=== PATIENT | male | born 1955 | race Caucasian/White ===

== ENCOUNTER 2025-01-01 15:20 | Outpatient (CLI) | payer MEDICARE, SELFPAY ==
--- OUTSIDE RECORDS SUMMARY | 2025-01-01 15:00 | XMS_ITS | Encounter Summary ---
Author Organization [facility] [employer] [facility] Address [address] [place] [address] Care Team Providers Care Sales Promotion Director Name Role Phone Fred Ramsay MD Primary Care Provider +1- [phone] Reason for Referral * Radiology Services (Routine) - Open Specialty Diagnoses / Procedures Referred By Blas chavez Referred To Contact Diagnoses MGUS (monoclonal gammopathy of unknown significance) Procedures XR BONE SURVEY COMPLETE Javier Wang MD [address] [employer] [address] [place] [address] Phone: tel: fax: Referral ID Status Reason Start Date Expiration Date Visits Re quested Visits Authorized [id number] Open 01/01/2025 02/01/2026 1 1 TAL COMPUTER OPERATOR Encounter Details Date Type Department Care Team (Late st Contact Info) Description 01/01/2025 3:00 PM DIGITAL COMPUTER OPERATOR Office Visit [facility] Oncology and Hematology - Jaspal [facility] Pratik Christianson [facility] [address] [place] [address] Javier Wang MD [address] [employer] [address] [place] [address] MGUS (monoclonal gammopathy of unknown significance) (Primary Dx) Social History Tobacco Use Types Packs/Day Years Used Date Smoking Tobacco: Never Smokeless Tobacco: Never Alcohol Use Standard Drinks/Week Comments Not Currently 0 (1 standard drink = 0.6 oz pur e alcohol) occasionally Feeling Safe Answer Date Recorded Are you in a relationship wi th someone who hurts you emotionally and/or physically? No 12/26/2024 Food Insecurity Answer Date Recorded Patient needs follow up regardin 07/02/2024 Transportation Needs Answer Date Record ed Patient needs follow up regardin 07/02/2024 Housing Stability Answer Date Recorded Social/Environmental Concerns No concerns Utility Needs Answer Date Recorded Patient needs follow up regardin 07/02/2024 Sex and Gender Information Value Date Recorded Sex Assigned at Not on file Legal Sex Male 3:56 PM CDT Gender Identity Not on file Sexual Orientation Not on file documented as of this encounter Last Filed Vital Signs Vital Sign Reading Time Taken Comments Blood Pressure 128/57 01/01/2025 2:33 PM DIGITAL COMPUTER OPERATOR Pulse 65 01/01/2025 2:33 PM DIGITAL COMPUTER OPERATOR Temperature 36.1 C (96.9 F) 01/01/2025 2:33 PM DIGITAL COMPUTER OPERATOR Respiratory Rate 15 01/01/2025 2:33 PM DIGITAL COMPUTER OPERATOR Oxygen Saturation 96% 01/01/2025 2:33 PM DIGITAL COMPUTER OPERATOR Inhaled Oxygen Concentration - - Weight 97.6 kg (215 lb 3.2 oz) 01/01/2025 2:33 P M DIGITAL COMPUTER OPERATOR Height 182.9 cm (6') 01/01/2025 2:33 PM DIGITAL COMPUTER OPERATOR Body Mass Index 29.19 01/01/2025 2:33 PM DIGITAL COMPUTER OPERATOR documented in this encounter Plan of Treatment Upcoming Encounters Date Type Department Care Team (Latest Contact Info) Description 01/11/20 11:30 AM DIGITAL COMPUTER OPERATOR Appointment [facility] Imaging Services [facility] [address] [place] [address] [place] [address] [facility] [address] [place] [address] 01/17/20 4:30 PM DIGITAL COMPUTER OPERATOR Telephone Check Up [facility] Oncology and Hematology - Jaspal [address] [place] [address] Javier Wang MD [address] [facility] [address] [place] [address] 01/31/20 9:00 AM DIGITAL COMPUTER OPERATOR Hospital Encounter [facility] [address] [place] [address] [place] [address] [place] [address] Esophageal varices without bleeding, unspecified esophageal varices type ([facility]/HCC) 01/31/20 25 9:00 AM DIGITAL COMPUTER OPERATOR - 01/31/20 25 9:30 AM DIGITAL COMPUTER OPERATOR Surgery [facility] [address] [place] [address] [place] [address] [place] [address] ESOPHAGOGASTRODUODENOSCOPY 03/07/19 26 10:00 AM DIGITAL COMPUTER OPERATOR Office Visit [facility] Nephrology [place] [address] [facility] [address] [place] [address] Adelita Camacho MD [address] [facility] [address] [place] [address] 03/20/19 26 1:00 PM DIGITAL COMPUTER OPERATOR Office Visit [facility] Heart and Vascular Electrophysiology - [address] [facility] [address] [facility] [address] [place] [address] 04/03/19 26 8:15 AM DIGITAL COMPUTER OPERATOR Appointment [facility] Imaging Services [facility] [address] [place] [address] [place] [address] [place] [address] 04/03/19 26 2:30 PM DIGITAL COMPUTER OPERATOR Office Visit [facility] GASTROENTEROLOGY - [address] [facility] [address] [facility] [facility] [facility] [facility] [place] [address] [place] [address] [place] [address] 04/16/19 1:45 PM DIGITAL COMPUTER OPERATOR Office Visit [facility] Heart and Vascular - [address] [facility] [address] [address] [facility] [address] [place] [address] [place] [address] [facility] [address] [place] [address] Scheduled Orders Name Type Priority Associated Diagnoses Orde r Schedule CBC WITH DIFFERENTIAL Lab Stat MGUS (monoclonal gammopathy of unknown significance) Expected: 01/01/2025, Expires: 01/01/2026 COMPREHENSIVE METABOLIC PANEL Lab Stat MGUS (monoclonal gammopathy of unknown significance) Expected: 01/01/2025, Expires: 01/01/2026 IMMUNOGLOBULINS IGG IGA IGM Lab Routine MGUS (monoclonal gammopathy of unknown significance) Expected: 01/01/2025, Expires: 01/01/2026 KAPPA/LAMBDA, FREE LIGHT CHAINS Lab Routine MGUS (monoclonal gammopathy of unknown significance) Expected: 01/01/2025, Expires: 01/01/2026 PROTEIN ELECTROPHORESIS W/REFLEX,SERUM Lab Routine MGUS (monoclonal gammopathy of unknown significance) Expected: 01/01/2025, Expires: 01/01/2026 XR BONE SURVEY COMPLETE Imaging Routine MGUS (monoclonal gammopathy of unknown significance) 1 Occurrences starting 01/01/2025 until 01/01/2026 Scheduled Procedures Name Priority Associated Diagnoses Date/Ti oh ESOPHAGOGASTRODUODENOSCOPY Esophageal varices without bleeding, unspecified esophageal varices type (CMS/HCC) 01/30/2025 9:00 AM DIGITAL COMPUTER OPERATOR documented as of this encounter Goals Goal Patient Goal Type Associated Problems Recent Progress Patient-Stated? Author Autogenera claudia Goal Care Plan Autogenerated Problem No Rain Farfan documented as of this encounter Visit Diagnoses Diagnosis MGUS (monoclonal gammopathy of unknown significance)- Primary Monoclonal paraproteinemia Esophageal varices without bleeding, unspecified esophageal varices type (CMS/HCC) documented in this encounter Additional Health Concerns Active Problems Noted Date Diagnosed Date Autogenerated Problem 12/28/2024 documented as of this encounter Care Teams Sales Promotion Director Relationship Specialty Start Date End Date Fred Ramsay MD [address] [place] [address] PCP - General Family Practice 12/10/23 documented as of this encounter
--- OUTSIDE RECORDS SUMMARY | 2025-01-01 15:34 | XMS_ITS | Clinical Summary ---
Author Organization [facility] Address [address] [place] [address] Care Team Providers Care Secretary Office Clerk Name Role Phone Fred Ramsay MD Primary Care Provider [phone] [phone] Allergies No known active allergies Medications aspirin 81 mg enteric coated tablet Take 1 tablet (81 mg total) by mouth daily Active allopurinoL (ZYLOPRIM) 100 mg tablet Take 1 tablet (100 mg total) by mouth daily 3 Active atorvastatin (LIPITOR) 10 mg tablet Take 1 tablet (10 mg total) by mouth daily 5 Active ergocalciferol (VITAMIN D) 50,000 unit capsule Take 1.25 mg by mouth once a week 3 Active glipiZIDE XL (GLUCOTROL XL) 2.5 mg 24 hr tablet Take 1 tablet (2.5 mg total) by mouth every other day 6 Active levothyroxine (SYNTHROID) 75 mcg tablet Take 1 tablet (75 mcg total) by mouth daily 6 Active losartan-hydroCHL OROthiazide (HYZAAR) 100-12.5 mg per tablet Take 1 tablet by mouth daily 5 Active sildenafiL (VIAGRA) 50 mg tablet Take 1 tablet (50 mg total) by mouth as needed 3 Active cyclobenzaprine (FLEXERIL) 10 mg tablet Take 1 tablet (10 mg total) by mouth daily as needed for muscle spasms (at bedtime) 30 tablet 1 4 Active Additional Information Patient not taking.Reported on 10/20/2023 calcium carb-mag oxide-vit D3 400-167-133 mg-mg-unit tablet Take by mouth daily Active coenzyme Q10 10 mg capsule Take 1 capsule (10 mg total) by mouth daily Active pregabalin (LYRICA) 50 mg capsuleIndication s:Myalgia,Lumbar radiculopathy Take 1 capsule (50 mg total) by mouth 2 (two) times a day 60 capsule 2 4 Active Active Problems Problem Noted Date Diagnosed Date History of nonmelanoma skin cancer 04/08/2016 Condyloma acuminatum 03/06/2016 Surgical History Surgery Date Site/Laterality Comments BACK SURGERY CARDIAC PACEMAKER PLACEMENT 02/23/2008 - 02/21/2009 Medical History Medical History Date Comments 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 - (Added by TW Conv) Hypertension Family History Medical History Relation Name Comments Cancer Brother Heart disease Brother Relation Name Status Comments Brother Social History Tobacco Use Types Packs/Day Years Used Date Smoking Tobacco: Never Sex and Gender Information Value Date Recorded Sex Assigned at Not on file Legal Sex Male 2:01 AM MINIATURE SET CONSTRUCTOR Gender Identity Not on file Sexual Orientation Not on file Last Filed Vital Signs Vital Sign Reading Time Taken Comments Blood Pressure - - Pulse - - Temperature - - Respiratory Rate - - Oxygen Saturation - - Inhaled Oxygen Concentration - - Weight 101.8 kg (224 lb 6.4 oz) 024 10:27 AM CDT Height 181.6 cm (5' 11.5) 10/20/2023 1 0:27 AM CDT Body Mass Index 30.86 10/20/2023 10:27 AM CDT Plan of Treatment Health Maintenance Due Date Last Done Comments Colon Cancer Screening-Colonoscopy 1955 Depression Screening 1955 Fall Risk Assessment 1955 Hepatitis C Screening 1955 Hepatitis B Screening 1972 Zoster Vaccine (1 of 2) 2004 Well Visit 65+ 10/18/2019 DTaP/Tdap/Td Vaccine (2 - Td or Tdap) 01/12/2022 01/13/2012 Covid-19 Vaccine (6 - 2024-2 6 season) 2024 01/28/2023, 12/31/2021, 02/05/2021, Additional history exists Influenza Vaccine (#1) 2024 3, 12/31/2021, 02/03/2021, Additional history exists Pneumococcal vaccine 65+ Completed 12/07/2019, 02/2019 Insurance AETNA MEDICARE AETNA MEDICARE Care Teams Secretary Office Clerk Relationship Specialty Start Date End Date Fred Ramsay MD [address] [facility] [place] [address] PCP - General Emergency Medicine 09/02/23
--- OUTSIDE RECORDS SUMMARY | 2025-01-01 15:34 | XMS_ITS | Encounter Summary ---
Author Organization [facility] Address [address] [place] [address] Care Team Providers Care Cabinetmaker Apprentice Name Role Phone Fred Ramsay MD Primary Care Provider +1- [phone] Encounter Details Date Type Department Care Team (Latest Contact Info) Description 12/14/2024 Results Follow-Up [facility] Heart and Vascular Electrophysiology - [address] [facility] 300 [address] [facility] 300 [place] [address] [place] [address] [facility] 300 [place] [address] PACER ANALYSIS REMOTE, UP TO 90 DAYS Social History Tobacco Use Types Packs/Day Years Used Date Smoking Tobacco: Never Smokeless Tobacco: Never Alcohol Use Standard Drinks/Week Comments Not Currently 0 (1 standard drink = 0.6 oz pur e alcohol) occasionally Feeling Safe Answer Date Recorded Are you in a relationship wi th someone who hurts you emotionally and/or physically? No 02/29/2024 Food Insecurity Answer Date Recorded Patient needs [...] on file documented as of this encounter Miscellaneous Notes * Result Encounter Note - Jf Loco MD - 12/14/2024 2:01 PM CDT Reviewed and agree with documentation. documented in this encounter Plan of Treatment Upcoming Encounters Date Type Department Care Team (Latest Contact Info) Description 01/11/20 11:30 AM BEVEL FACE STONER AND POLISHER Appointment [facility] Imaging Services [facility] [address] [place] [address] [place] [address] [employer] [address] [place] [address] 01/17/20 4:30 PM BEVEL FACE STONER AND POLISHER Telephone Check Up [facility] Oncology and Hematology - Jaspal [address] [facility] 200 [place] [address] Javier Wang MD [address] [facility] [address] [place] [address] 01/31/20 9:00 AM BEVEL FACE STONER AND POLISHER Hospital Encounter [facility] Endoscopy Services [address] [place] [address] [place] [address] [facility] [address] [place] [address] Esophageal varices without bleeding, unspecified esophageal varices type (CMS/HCC) 01/31/20 9:00 AM BEVEL FACE STONER AND POLISHER - 01/31/20 9:30 AM BEVEL FACE STONER AND POLISHER Surgery [facility] Endoscopy Services [address] [place] [address] [place] [address] [facility] [address] [place] [address] ESOPHAGOGASTRODUODENOSCOPY 03/07/19 26 10:00 AM BEVEL FACE STONER AND POLISHER Office Visit [facility] Nephrology [employer] [address] [facility] [address] [place] [address] Adelita Camacho MD [address] [facility] [address] [place] [address] 03/20/19 1:00 PM BEVEL FACE STONER AND POLISHER Office Visit [facility] Heart and Vascular Electrophysiology - [address] [facility] 300 [address] [facility] 300 [place] [address] 04/03/19 8:15 AM BEVEL FACE STONER AND POLISHER Appointment [facility] Imaging Services [facility] [address] [place] [address] [place] [address] [facility] 102 [place] [address] 04/03/19 2:30 PM BEVEL FACE STONER AND POLISHER Office Visit [facility] GASTROENTEROLOGY - [address] [facility] 102 [address] [facility] 102 [place] [address] [place] [address] [facility] 102 [place] [address] 04/16/19 1:45 PM BEVEL FACE STONER AND POLISHER Office Visit [facility] Heart and Vascular - [address] [facility] 300 [address] [facility] 300 [place] [address] [place] [address] [facility] 300 [place] [address] Scheduled Procedures Name Priority Associated Diagnoses Date/Ti ar ESOPHAGOGASTRODUODENOSCOPY Esophageal varices without bleeding, unspecified esophageal varices type (CMS/HCC) 01/30/2025 9:00 AM BEVEL FACE STONER AND POLISHER documented as of this encounter Visit Diagnoses Not on filedocumented in this encounter Care Teams Cabinetmaker Apprentice Relationship Specialty Start Date End Date Fred Ramsay MD [address] [place] [address] PCP - General Family Practice 12/10/23 documented as of this encounter
--- OUTSIDE RECORDS SUMMARY | 2025-01-01 15:34 | XMS_ITS | Clinical Summary ---
Author Organization [facility] Address [address] [facility] 2 [place] [address] Phone Care Team Providers Care Hot Wire Glass Tube Cutter Name Role Phone Unavailable Primary Care Provider Unavailabl e Allergies No known active allergies Medications atorvastatin (LIPITOR) 10 MG Tablet Take 1 Tab by mouth daily. 10/03/2014 Active losartan-hydroc hlorothiazide (HYZAAR) 100-12.5 MG Tablet Take 1 Tab by mouth daily. 10/03/2014 Active gabapentin (NEURONTIN) 300 MG Capsule 1 Cap at bedtime for 3 days. Then 1 Cap two times a day for 3 days. Then 1 cap three times a day for 3 Days. Then call office with report 18 Cap 0 12/06/2014 Active Active Problems Problem Noted Date Diagnosed Date Weakness of left foot 12/06/2014 Spinal stenosis of lumbar region 12/06/2014 Abnormal EKG Atrioventricular block, first degree Sinus bradycardia Leg pain, left Spondylolisthesis, acquired Lumbar herniated disc Family History Medical History Relation Name Comments Heart Attack Brother 1 Cancer Brother 2 Dx with throat cancer Diabetes Father Cancer Mother Dx with colon c ancer ? Relation Name Status Comments Brother 1 Brother 2 Father from ulcer complications Mother after colo n cancer- post-surgery ? Social History Tobacco Use Types Packs/Day Years Used Date Smoking Tobacco: Never Smokeless Tobacco: Never Alcohol Use Standard Drinks/Week Comments Yes 0 (1 standard drink = 0.6 oz pur e alcohol) drinks occasioannly Sex and Gender Information Value Date Recorded Sex Assigned at Not on file Legal Sex Male 7:41 PM CDT Gender Identity Not on file Sexual Orientation Not on file Occupation Industry Job Start Date Job End Date retired Not on file Not on file Not on file Last Filed Vital Signs Vital Sign Reading Time Taken Comments Blood Pressure 122/70 12/19/2014 11:11 AM CDT Pulse 88 12/06/2014 9:09 AM CDT Temperature - - Respiratory Rate - - Oxygen Saturation - - Inhaled Oxygen Concentration - - Weight 101.6 kg (224 lb) 12/19/2014 11:11 AM CDT Height 185.4 cm (6' 1) 12/19/2014 11:11 AM CDT Body Mass Index 29.55 12/19/2014 11:11 AM CDT Plan of Treatment Health Maintenance Due Date Last Done Comments Hepatitis C Virus (HCV) Screening 1955 Cologuard 10/18/1999 Colonoscopy 10/18/1999 Colorectal Cancer Screening 10/18/1999 Immunochemical Fecal Occult Blood 10/18/1999 Zoster Immunization (1 of 2) 2004 Influenza Immunization (#1) 2024 12/0 08/2022, 12/31/2021, 02/03/2021, Additional history exists SARS-COV-2 Immunization ( season) 2024 01/28/2023, 12/31/2021, 02/05/2021, Additional history exists Respiratory Syncytial Virus (RSV) Immunization (Adult) (1 - 1-dose 75+ series) 2029 DTaP/Tdap/Td Immunization Discontinued 01/13/2012 TdaP Immunization Completed 01/13/2012 Pneumococcal Immunization (50+ years) Completed 12/07/2019, 11/23/2019 Pneumococcal Immunization Combined Discontinued 12/07/2019, 11/23/2019 Hepatitis B Immunization Aged Out No longer eligible based on patient's age to complete this topic Human Papillomavirus (HPV) Immunization Aged Out No longer eligible based on patient's age to complete this topic Meningococcal Immunization (ACWY) Aged Out No longer eligible based on patient's age to complete this topic Rotavirus Immunization Aged Out No lo nger eligible based on patient's age to complete this topic Insurance [facility] OA
--- OUTSIDE RECORDS SUMMARY | 2025-01-01 15:34 | XMS_ITS | Encounter Summary ---
Author Organization [facility] Address [address] [place] [address] Care Team Providers Care Dry Starch Supervisor Name Role Phone Fred Ramsay MD Primary Care Provider +1- [phone] Reason for Visit * Reason Onset Date Comments Mary 12/10/2023 Spoke Gayla/ Jasmin @ Dr. Hatch's exchange Encounter Details Date Type Department Care Team (Late st Contact Info) Description 12/10/2023 Telephone [facility] Admitting [address] [place] [address] [place] [address] [address] Mary (Spoke Gayla/ Jasmin @ Dr. Hatch's exchange) Social History Tobacco Use Types Packs/Day Years Used Date Smoking Tobacco: Never Smokeless Tobacco: Never Alcohol Use Standard Drinks/Week Comments Not Asked 0 (1 standard drink = 0.6 oz pur e alcohol) occasionally Feeling Safe Answer Date Recorded Are you in a relationship wi th someone who hurts you emotionally and/or physically? No 12/10/2023 Food Insecurity Answer Date Recorded Social/Environmental Concerns No concerns Transportation Needs Answer Date Record ed Social/Environmental Concerns No concerns Housing Stability Answer Date Recorded Social/Environmental Concerns No concerns Utility Needs Answer Date Recorded Social/Environmental Concerns No concerns Sex and Gender Information Value Date Recorded Sex Assigned at Not on file Legal Sex Male 3:56 PM CDT Gender Identity Not on file Sexual Orientation Not on file documented as of this encounter Plan of Treatment Upcoming Encounters Date Type Department Care Team (Latest Contact Info) Description 01/11/20 11:30 AM OPTICAL LENS MANUFACTURING TECH Appointment [facility] Imaging Services [facility] [address] [place] [address] [place] [address] [facility] [address] [place] [address] 01/17/20 4:30 PM OPTICAL LENS MANUFACTURING TECH Telephone Check Up [facility] Oncology and Hematology - Jaspal [address] [facility] [address] [place] [address] Javier Wang MD [address] [facility] [address] [place] [address] 01/31/20 9:00 AM OPTICAL LENS MANUFACTURING TECH Hospital Encounter [facility] Endoscopy Services [address] [place] [address] [place] [address] [facility] [address] [place] [address] Esophageal varices without bleeding, unspecified esophageal varices type (CMS/HCC) 01/31/20 9:00 AM OPTICAL LENS MANUFACTURING TECH - 01/31/20 9:30 AM OPTICAL LENS MANUFACTURING TECH Surgery [facility] Endoscopy Services [address] [place] [address] [place] [address] [facility] [address] [place] [address] ESOPHAGOGASTRODUODENOSCOPY 03/07/19 10:00 AM OPTICAL LENS MANUFACTURING TECH Office Visit [facility] Nephrology [place] [address] [facility] [address] [place] [address] Adelita Camacho MD [address] [facility] [address] [place] [address] 03/20/19 1:00 PM OPTICAL LENS MANUFACTURING TECH Office Visit [facility] Heart and Vascular Electrophysiology - [address] [facility] 300 [address] [facility] [address] [place] [address] 04/03/19 8:15 AM OPTICAL LENS MANUFACTURING TECH Appointment [facility] Imaging Services [facility] [address] [place] [address] [place] [address] [facility] [address] [place] [address] 04/03/19 2:30 PM OPTICAL LENS MANUFACTURING TECH Office Visit [facility] GASTROENTEROLOGY - [address] [facility] 102 [address] [facility] [address] [place] [address] [place] [address] [facility] [address] [place] [address] 04/16/19 1:45 PM OPTICAL LENS MANUFACTURING TECH Office Visit [facility] Heart and Vascular - [address] [facility] 300 [address] [facility] 300 [place] [address] [place] [address] [address] Scheduled Procedures Name Priority Associated Diagnoses Date/Ti nv ESOPHAGOGASTRODUODENOSCOPY Esophageal varices without bleeding, unspecified esophageal varices type ([facility]) 01/30/2025 9:00 AM OPTICAL LENS MANUFACTURING TECH documented as of this encounter Visit Diagnoses Not on filedocumented in this encounter Care Teams Dry Starch Supervisor Relationship Specialty Start Date End Date Fred Ramsay MD [address] [place] [address] PCP - General Family Practice 12/10/23 documented as of this encounter
--- OUTSIDE RECORDS SUMMARY | 2025-01-01 15:34 | XMS_ITS | Encounter Summary ---
Author Organization [facility] Address [address] [place] [address] Care Team Providers Care Technical Support 1 Software Engineer Name Role Phone Fred Ramsay MD Primary Care Provider [phone]- [phone] Encounter Details Date Type Department Care Team (Latest Contact Info) Description 03/14/2024 Results Follow-Up [facility] GASTROENTEROLOGY - [address] [facility] [address] [facility] 102 [place] [address] [place] [address] [facility] [address] [place] [address] PATHOLOGY, JACKELINE SCREEN W/REFLEX, CERULOPLASMIN, Additional followed-up results: 8 Social History Tobacco Use Types Packs/Day Years Used Date Smoking Tobacco: Never Smokeless Tobacco: Never Alcohol Use Standard Drinks/Week Comments Not Currently 0 (1 standard drink = 0.6 oz pur e alcohol) occasionally Feeling Safe Answer Date Recorded Are you in a relationship wi th someone who hurts you emotionally and/or physically? No 02/29/2024 Food Insecurity Answer Date Recorded Social/Environmental Concerns [...] Care Team (Latest Contact Info) Description 01/11/20 25 11:30 AM CHANNEL OPENER OUTSOLES Appointment [facility] Imaging Services [facility] [address] [place] [address] [place] [address] [place] [address] 01/17/20 25 4:30 PM CHANNEL OPENER OUTSOLES Telephone Check Up [facility] Oncology and Hematology - [address] [facility] [address] [place] [address] Javier Wang MD [address] [facility] [address] [place] [address] 01/31/20 25 9:00 AM CHANNEL OPENER OUTSOLES Hospital Encounter [facility] Endoscopy Services [address] [place] [address] [place] [address] [facility] [address] [place] [address] Esophageal varices without bleeding, unspecified esophageal varices type (CMS/HCC) 01/31/20 25 9:00 AM CHANNEL OPENER OUTSOLES - 01/31/20 25 9:30 AM CHANNEL OPENER OUTSOLES Surgery [facility] Endoscopy Services [address] [place] [address] [place] [address] [facility] [address] [place] [address] ESOPHAGOGASTRODUODENOSCOPY 03/07/19 26 10:00 AM CHANNEL OPENER OUTSOLES Office Visit [facility] Nephrology [place] [address] [facility] [address] [place] [address] Adelita Camacho MD [address] [facility] [address] [place] [address] 03/20/19 26 1:00 PM CHANNEL OPENER OUTSOLES Office Visit [facility] Heart and Vascular Electrophysiology - [address] [facility] [address] [address] [facility] [address] [place] [address] 04/03/19 8:15 AM CHANNEL OPENER OUTSOLES Appointment [facility] Imaging Services [facility] [address] [place] [address] [place] [address] [facility] [address] [place] [address] 04/03/19 2:30 PM CHANNEL OPENER OUTSOLES Office Visit [facility] GASTROENTEROLOGY - [address] [facility] [address] [facility] [address] [place] [address] [place] [address] [facility] [address] [place] [address] 04/16/19 1:45 PM CHANNEL OPENER OUTSOLES Office Visit [facility] Heart and Vascular - [address] [facility] 300 [address] [facility] [address] [place] [address] [place] [address] [facility] [address] [place] [address] Scheduled Procedures Name Priority Associated Diagnoses Date/Ti mo ESOPHAGOGASTRODUODENOSCOPY Esophageal varices without bleeding, unspecified esophageal varices type ([facility]/HCC) 01/30/2025 9:00 AM CHANNEL OPENER OUTSOLES documented as of this encounter Visit Diagnoses Not on filedocumented in this encounter Care Teams Technical Support 1 Software Engineer Relationship Specialty Start Date End Date Fred Ramsay MD [address] [place] [address] PCP - General Family Practice 12/10/23 documented as of this encounter
--- OUTSIDE RECORDS SUMMARY | 2025-01-01 15:34 | XMS_ITS | Encounter Summary ---
Author Organization [facility] Address [address] [place] [address] Care Team Providers Care Rn Emergency Name Role Phone Fred Ramsay MD Primary Care Provider [phone]- [phone] Encounter Details Date Type Department Care Team (Late st Contact Info) Description 12/28/2024 Results Follow-Up [facility] GASTROENTEROLOGY - [address] [facility] 102 [address] [facility] 102 [place] [address] [place] [address] [facility] [address] [place] [address] PATHOLOGY Social History Tobacco Use Types Packs/Day Years [...] (Latest Contact Info) Description 01/11/20 11:30 AM DIRECTOR OF MANUFACTURING OPERATIONS Appointment [facility] Imaging Services [facility] [address] [place] [phone] [place] [address] [facility] [address] [place] [address] 01/17/20 4:30 PM DIRECTOR OF MANUFACTURING OPERATIONS Telephone Check Up [facility] Oncology and Hematology - [address]aspal [address] [facility] [address] [place] [address] Javier Wang MD [address] [facility] [address] [place] [address] 01/31/20 9:00 AM DIRECTOR OF MANUFACTURING OPERATIONS Hospital Encounter [facility] Endoscopy Services [address] [place] [address] [place] [address] [facility] [address] [place] [address] Esophageal varices without bleeding, unspecified esophageal varices type (CMS/HCC) 01/31/20 9:00 AM DIRECTOR OF MANUFACTURING OPERATIONS - 01/31/20 9:30 AM DIRECTOR OF MANUFACTURING OPERATIONS Surgery [facility] Endoscopy Services [address] [place] [address] [place] [address] [facility] [address] [place] [address] ESOPHAGOGASTRODUODENOSCOPY 03/07/19 26 10:00 AM DIRECTOR OF MANUFACTURING OPERATIONS Office Visit [facility] Nephrology [place] [address] [facility] [address] [place] [address] Adelita Camacho MD [address] [facility] [address] [place] [address] 03/20/19 26 1:00 PM DIRECTOR OF MANUFACTURING OPERATIONS Office Visit [facility] Heart and Vascular Electrophysiology - [address] [facility] [address] [address] [facility] [address] [place] [address] 04/03/19 8:15 AM DIRECTOR OF MANUFACTURING OPERATIONS Appointment [facility] Imaging Services [facility] [address] [place] [address] A[place]atou [place]jennilacieDO [address] [facility] [address] [place] [address] 04/03/19 2:30 PM DIRECTOR OF MANUFACTURING OPERATIONS Office Visit [facility] GASTROENTEROLOGY - [address] [facility] 102 [address] [facility] [address] [place] [address] Aissatou WinterDO jerry [address] [facility] [address] [place] [address] 04/16/19 1:45 PM DIRECTOR OF MANUFACTURING OPERATIONS Office Visit [facility] Heart and Vascular - [address] [facility] 300 [address] [facility] 300 [place] [address] [place] [address] [facility] [address] [place] [address] Scheduled Procedures Name Priority Associated Diagnoses Date/Ti me ESOPHAGOGASTRODUODENOSCOPY Esophageal varices without bleeding, unspecified esophageal varices type ([facility]) 01/30/2025 9:00 AM DIRECTOR OF MANUFACTURING OPERATIONS documented as of this encounter Goals Goal Patient Goal Type Associated Problems Recent Progress Patient-Stated? Author Autogenera claudia Goal Care Plan Autogenerated Problem No Rain Farfan documented as of this encounter Visit Diagnoses Not on filedocumented in this encounter Additional Health Concerns Active Problems Noted Date Diagnosed Date Autogenerated Problem 12/28/2024 documented as of this encounter Care Teams Rn Emergency Relationship Specialty Start Date End Date Fred Ramsay MD [address] [facility] [address] PCP - General Family Practice 12/10/23 documented as of this encounter
--- OUTSIDE RECORDS SUMMARY | 2025-01-01 15:35 | XMS_ITS | Clinical Summary ---
Author Organization [facility] Address [address] [place] [phone] Phone Care Team Providers Care Project Management Professor Name Role Phone Fred Ramsay MD Primary Care Provider [phone] Allergies No known active allergies Medications allopurinoL (ZYLOPRIM) 100 mg tablet Take 100 mg by mouth daily. 11/21/19 23 Active ergocalciferol (VITAMIN D2) 50,000 unit capsule Take 50,000 Units by mouth every 2 weeks. 11/21/19 23 Active levothyroxine sodium (SYNTHROID ORAL) Active losartan potassium (COZAAR ORAL) Active cyanocobalamin, vitamin B-12, (VITAMIN B-12 ORAL) Active ferrous sulfate 324 mg (65 mg iron) Tablet, Delayed Release (E.C.) Take 1 Tablet by mouth daily. 12/23/19 24 Active Nexletol 180 mg Tablet 180 mg. 03/22/19 25 Active cyclobenzaprine (FLEXERIL) 10 mg tablet 06/21/19 25 Active HYDROcodone-aceta minophen (NORCO) 5-325 mg tablet 06/22/19 25 Active pregabalin (LYRICA) 75 mg Capsule 08/24/19 25 Active rosuvastatin (CRESTOR) 5 mg tabletIndications :Hyperlipidemia, unspecified hyperlipidemia type Take 1 Tablet (5 mg) by mouth daily. 90 Tablet 2 09/06/19 25 Active carvediloL (COREG) 3.125 mg tablet Take 1 Tablet (3.125 mg) by mouth 2 times daily with meals. 180 Tablet 1 09/27/19 25 Active dapagliflozin propanediol (FARXIGA) 10 mg Tablet Take 1 Tablet (10 mg) by mouth daily. 30 Tablet 11 12/08/19 Active omeprazole (PriLOSEC) 40 mg Capsule, Delayed Release(E.C.) Take 1 Capsule (40 mg) by mouth daily. 90 Capsule 2 12/29/19 Active glipizide (GLUCOTROL XL ORAL) Discontinued(Al ternate therapy prescribed) omeprazole (PriLOSEC) 40 mg Capsule, Delayed Release(E.C.) Take 1 Capsule (40 mg) by mouth daily. 30 Capsule 5 09/27/19 025 Discontinued(Re order) peg 3350-electrolytes (Golytely) 236-22.74-6.74 -5.86 gram Recon Soln Take 1 Each (4,000 mL) by mouth one time for 1 dose. 1 Each 12/20/19 Discontinued dapagliflozin propanediol (FARXIGA) 5 mg Tablet Take 1 Tablet (5 mg) by mouth daily. 90 Tablet 12/07/19 Discontinued(Re order) lidocaine (lidocaine viscous 2%) 2 % Solution 5 mL by Mouth/Thro at route every 6 hours as needed for Pain or Sore Throat. 10 mL 12/27/19 Active Problems Problem Noted Date Diagnosed Date Cirrhosis of liver without ascites 03/28/2024 Secondary esophageal varices without bleeding Acute blood loss anemia 12/09/2023 UGIB (upper gastrointestinal bleed) 12/09/2023 HERVE (acute kidney injury) 12/09/2023 Gout 12/09/2023 ASCVD (arteriosclerotic cardiovascular disease) 12/09/2023 Mixed hyperlipidemia 12/09/2023 Acquired hypothyroidism 12/09/2023 Benign essential HTN 12/09/2023 Melena 12/09/2023 Anemia 12/09/2023 Resolved Problems Problem Noted Date Diagnosed Date Resolved Date Type 2 diabetes mellitus wit hout complication, without long-term current use of insulin 12/09/2023 10/26/2024 Encounters Date Type Department Care Team Description 01/02/20 3:00 PM [facility]AN[facility] Office Visit [facility] Oncology and Hematology Formerly [facility] [address] [place] [phone] Javier Wang MD MGUS (monoclonal gammopathy of unknown significance) (Primary Dx) 12/29/19 Refill [facility] GASTROENTEROLOGY - [address] [address] [facility] [address] [place] [phone] Gerardo Winter DO 12/29/19 Results Follow-Up [facility] GASTR[facility]OLOGY - [address] [address] [facility] [address] [place] [phone] Gerardo Winter DO PATHOLOGY 12/27/19 7:34 AM [facility] Anesthesia Event [facility] [address] [place] [phone] Poornima Trejo MD Hoeft, Emily, AA-C 12/27/19 7:30 AM [facility] - 12/27/19 8:15 AM [facility] Surgery [facility] [address] [place] [address] Gerardo Winter DO ESOPHAGOGASTRODUODENOSCOPY 12/27/19 6:42 AM [facility] HAND - 12/27/19 9:25 AM [facility]OCK [facility] Hospital Encounter [facility] [address] [place] [address] Gerardo Winter DO Iron deficiency anemia, unspecified iron deficiency anemia type Discharge Disposition: Home or Self Care 12/16/19 Abstract [facility] Nephrology [place] [address] [facility] [address] [place] [phone] Adelita Camacho MD 12/15/19 Results Follow-Up [facility] Heart and Vascular Electrophysiology - [address] [facility] [address] [address] [facility] [address] [place] [phone] Jf Loco MD PACER ANALYSIS REMOTE, UP TO 90 DAYS 12/14/19 External Device Data STL ABSTRACTION Provider, Abstract 12/13/19 1:45 PM CDT Procedure visit [facility] Heart and Vascular Electrophysiology - [address] [facility] [address] [address] [address] [place] [phone] Complete heart block (CMS/HC C) (Primary Dx); Pacemaker 12/08/19 Orders Only [facility] Nephrology [place] [address] [place] [phone] Adelita Camacho MD 12/07/19 Orders Only [facility] Nephrology [place] [address] [place] [address] Adelita Camacho MD 12/06/19 8:00 AM CDT Office Visit [facility] Nephrology [place] [address] [place] [phone] Adelita Camacho MD CKD (chronic kidney disease) stage 4, GFR 15-29 ml/min (CMS/HCC) (Primary Dx); Alcoholic cirrhosis of liver without ascites (CMS/HCC); Benign essential HTN; ASCVD (arteriosclerotic cardiovascular disease); Anemia, unspecified type; Type 2 diabetes mellitus with stage 4 chronic kidney disease, without long-term current use of insulin (CMS/HCC); Abnormal SPEP 12/06/19 Orders Only [facility] Nephrology [place] [address] [place] [phone] Adelita Camacho MD Abnormal SPEP (Primary Dx) 11/30/19 Abstract [facility] Nephrology [place] [address] [place] [phone] Adelita Camacho MD 11/28/19 Telephone [facility] Nephrology [place] [address] [place] [address] Adelita Camacho MD Labs Only 11/22/19 7:54 AM CDT - 11/22/19 11:59 PM CDT Hospital Encounter [facility] Imaging Services [facility] [address] [place] [phone] Adelita Camacho MD Discharge Disposition: Home or Self Care 11/21/19 Telephone [facility] Nephrology [place] [address] [place] [address] Adelita Camacho MD Venofer IV infusions 11/10/19 Orders Only [facility] Nephrology [place] [address] [facility] [address] [place] [phone] Provider, Abstract 11/01/19 External Device Data STL ABSTRACTION Provider, Abstract 11/01/19 External Device Data STL ABSTRACTION Provider, Abstract 10/27/19 1:00 PM CDT Office Visit [facility] Nephrology [place] [address] [place] [address] Adelita Camacho MD CKD stage 3b, GFR 30-44 ml/min (CMS/HCC) (Primary Dx); Alcoholic cirrhosis of liver without ascites (CMS/HCC); Benign essential HTN; ASCVD (arteriosclerotic cardiovascular disease); Anemia, unspecified type; Type 2 diabetes mellitus with stage 3b chronic kidney disease, without long-term current use of insulin (CMS/HCC) 10/18/19 Orders Only [facility]STR[facility] - [address] [facility] [address] [address] Gerardo Winter DO 10/11/19 Results Follow-Up [facility] - [address] [facility] [address] [address] Gerardo Winter DO CBC WITH DIFFERENTIAL, COMPREHENSIVE METABOLIC PANEL 10/06/19 Orders Only [facility] - [address] [facility] [address] [address] Gerardo Winter DO Elevated serum creatinine (Primary Dx); Anemia, unspecified type 10/06/19 Results Follow-Up [facility] - [address] [facility] [address] [phone] Gerardo Winter DO COMPREHENSIVE METABOLIC PANEL, CBC WITH DIFFERENTIAL, PROTIME-INR 10/04/19 External Device Data STL ABSTRACTION Provider, Abstract 10/04/19 External Device Data STL ABSTRACTION Provider, Abstract 10/04/19 External Device Data STL ABSTRACTION Provider, Abstract from Last 3 Months Family History Medical History Relation Name Comments Heart Disease Brother 1 Throat Cancer Brother 1 Diabetes Brother 2 Heart Disease Brother 2 No Known Problems Child 1 No Known Problems Child 2 No Known Problems Child 3 Diabetes Father Colon Cancer Mother No Known Problems Sister Esophageal Cancer Neg Hx Gastric Cancer Neg Hx Liver Cancer Neg Hx Pancreatic Cancer Neg Hx Relation Name Status Comments Brother 1 Alive Brother 2 Alive Child 1 Alive Child 2 Alive Child 3 Alive Father Mother Sister Alive Social History Tobacco Use Types Packs/Day Years Used Date Smoking Tobacco: Never Smokeless Tobacco: Never Tobacco Cessation:Counseling Given: Not Answered Alcohol Use Standard Drinks/Week Comments Not Currently [...] Comments Blood Pressure 128/57 01/01/2025 2:33 PM [facility] Pulse 65 01/01/2025 2:33 PM [facility]OCK [facility] Temperature 36.1 C (96.9 F) 01/01/2025 2:33 PM [facility] R[facility] HAND Respiratory Rate 15 01/01/2025 2:33 PM [facility]OCK RAN[facility] HAND Oxygen Saturation 96% 01/01/2025 2:33 PM [facility]STOCK RAN[facility] HAND Inhaled Oxygen Concentration - - Weight 97.6 kg (215 lb 3.2 oz) 01/01/2025 2:33 P M [facility] Height 182.9 cm (6') 01/01/2025 2:33 PM [facility]OCK [facility]AN[facility] Body Mass Index 29.19 01/01/2025 2:33 PM [facility]STOCK RAN[facility] Plan of Treatment Upcoming Encounters Date Type Department Care Team (Latest Contact Info) Description 01/11/20 11:30 AM [facility]STOCK RANCH HAND Appointment [facility] Imaging Services [facility] [address] [place] [phone] [place] [address] [facility] [address] [place] [address] 01/17/20 4:30 PM [facility] R[facility] HAND Telephone Check Up [facility] Oncology and Hematology - [place] [address] [facility] [address] [place] [address] Javier Wang MD [address] [facility] [address] [place] [address] 01/31/20 9:00 AM [facility]OCK R[facility] Hospital Encounter [facility] [address] [place] [address] [place] [address] [facility] [address] [place] [phone] Esophageal varices without bleeding, unspecified esophageal varices type (CMS/HCC) 01/31/20 9:00 AM [facility]OCK RAN[facility] HAND - 01/31/20 9:30 AM [facility] HAND Surgery [facility] [address] [place] [phone] [place] [address] [facility] [address] [place] [phone] ESOPHAGOGASTRODUODENOSCOPY 03/07/19 10:00 AM [employer]STOCK RANCH HAND Office Visit [facility] Nephrology [place] [address] [facility] [address] [place] [address] Adelita Camacho MD [address] [facility] [address] [place] [phone] 03/20/19 1:00 PM [facility]STOCK RAN[facility] HAND Office Visit [facility] Heart and Vascular Electrophysiology - [address] [facility] 300 [address] [facility] [address] [place] [address] 04/03/19 8:15 AM [facility]OCK RAN[facility] HAND Appointment [facility] Services [facility] [address] [place] [address] [place] [address] [facility] [address] [place] [address] 04/03/19 2:30 PM [employer]STOCK RANCH HAND Office Visit [facility] GASTR[facility] - [address] [facility] 102 [address] [facility] 102 [place] [address] [place] [address] [facility] 102 [place] [address] 04/16/19 1:45 PM [facility]STOCK RAN[facility] HAND Office Visit [facility] Heart and Vascular - [address] [facility] 300 [address] [facility] [address] [place] [address] [place] [address] [facility] [address] [place] [address] Scheduled Procedures Name Priority Associated Diagnoses Date/Ti az ESOPHAGOGASTRODUODENOSCOPY Esophageal varices without bleeding, unspecified esophageal varices type ([facility]/HCC) 01/30/2025 9:00 AM [facility]STOCK RANCH HAND Health Maintenance Due Date Last Done Comments DIABETES ANNUAL FOOT EXAM 1972 DIABETES ANNUAL RETINAL EXAM 1972 DTAP/TDAP/TD VACCINES (1 - Tdap) 1973 PNEUMOCOCCAL VACCINE 50+ YEA RS (1 of 2 - PCV) 1973 FIT-DNA Q 3 years 10/18/1999 FIT/FOBT Q 1 year 10/18/1999 Flex Sig/CT Colonography Q 5 years 10/18/1999 RSV VACCINE (60+ or ) (1 - Risk 50-74 years 1-dose series) 2004 ZOSTER VACCINE (1 of 2) 2004 Medicare Advantage (PR) Prev entative Visit/Annual Wellness Visit 02/23/2024 INFLUENZA VACCINE (#1) 2024 DIABETES HBA1C Q 6 MONTHS 05/28/2025 11/27/2024 LDL CHOLESTEROL ANNUAL 06/15/2025 06/15/2024 DIABETES MICROALBUMIN ANNUAL SCREEN 11/27/202511/27 COLORECTAL SCREENING 12/26/2034 12/26/2024, 12/27/19 25 Colorectal Cancer Screening 12/26/2034 Goals Goal Patient Goal Type Associated Problems Recent Progress Patient-Stated? Author Autogenera claudia Goal Care Plan Autogenerated Problem No Rain Farfan Procedures Procedure Name Priority Date/Time Associated Diagnosis Comments COLONOSCOPY REPORT 12/26/2024 8:28 AM [facility]STOCK RANCH HAND UPPER ENDOSCOPY REPORT 7:55 AM [facility] PATHOLOGY Pathology 12/26/2024 7:44 AM [employer]STOCK RANCH HAND Iron deficiency anemia, unspecified iron deficiency anemia type Esophageal varices without bleeding, unspecified esophageal varices type (CMS/HCC) Secondary esophageal varices without bleeding (CMS/HCC) DC COLONOSCOPY FLX DX W/ESTEBAN J SPEC WHEN PFRMD 12/26/2024 7:30 AM L[facility]STOCK RANCH HAND Iron deficiency anemia, unspecified iron deficiency anemia type Esophageal varices without bleeding, unspecified esophageal varices type (CMS/HCC) Secondary esophageal varices without bleeding (CMS/HCC) Case Notes SENT MMM CONFIRMED /27MMM EL DC ESOPHAGOGASTRODUODENOSCOP Y TRANSORAL DIAGNOSTIC 12/26/2024 7:30 AM L[facility]STOCK RANCH HAND Iron deficiency anemia, unspecified iron deficiency anemia type Esophageal varices without bleeding, unspecified esophageal varices type (CMS/HCC) Secondary esophageal varices without bleeding (CMS/HCC) Case Notes SENT MMM CONFIRMED 10/27MMM EL PACER ANALYSIS REMOTE, UP TO 90 DAYS Routine 12/12/2024 2:00 AM CDT Complete heart block (CMS/HCC) Pacemaker IMMUNOFIXATION Routine 11/27/2024 8:50 AM CDT HEMOGLOBIN A1C Routine 11/27/2024 8:50 AM CDT RENAL FUNCTION PANEL Routine 11/27/2024 8:50 AM CDT COMPREHENSIVE METABOLIC PANEL Routine 8:50 AM CDT Cirrhosis of liver without ascites, unspecified hepatic cirrhosis type (CMS/HCC) CBC WITH DIFFERENTIAL Routine 11/27/2024 8:50 AM CDT Cirrhosis of liver without ascites, unspecified hepatic cirrhosis type (CMS/HCC) ALPHA FETOPROTEIN TUMOR MARKER Routine 1 8:50 AM CDT Cirrhosis of liver without ascites, unspecified hepatic cirrhosis type (CMS/HCC) EXTRA TUBE Routine 11/27/2024 8:50 AM CDT DNA (DS) AB, CRITHIDIA IFA W/REFLEX TITER Routine 11/27/2024 8:50 AM CDT CKD stage 3b, GFR 30-44 ml/min (CMS/HCC) PTH INTACT Routine 11/27/2024 8:50 AM CDT CKD stage 3b, GFR 30-44 ml/min (CMS/HCC) VITAMIN D 25 HYDROXY Routine 11/27/2024 8:50 AM CDT CKD stage 3b, GFR 30-44 ml/min (CMS/HCC) KAPPA/LAMBDA LIGHT CHAINS Routine 2024 8:50 AM CDT CKD stage 3b, GFR 30-44 ml/min (CMS/HCC) PROTEIN ELECTROPHORESIS W/REFLEX,SERUM Routine 11/27/2024 8:50 AM CDT CKD stage 3b, GFR 30-44 ml/min (CMS/HCC) URINALYSIS W/REFLEX MICROSCOPIC Routine 11/27/2024 8:36 AM CDT CKD stage 3b, GFR 30-44 ml/min (CMS/HCC) MICROALBUMIN/CREATININE RATI O, RANDOM UR Routine 11/27/2024 8:36 AM CDT CKD stage 3b, GFR 30-44 ml/min (CMS/HCC) PROTEIN , RANDOM URINE Routine 8:36 AM CDT CKD stage 3b, GFR 30-44 ml/min (CMS/HCC) URINE CULTURE Routine 11/27/2024 8:36 AM CDT US RENAL AND BLADDER Routine 11/21/2024 9:14 AM CDT CKD stage 3b, GFR 30-44 ml/min (CMS/HCC) FERRITIN Routine 10/09/2024 4:33 PM CDT Anemia, unspecified type IRON, TIBC, AND PERCENT SATURATION Routine 10/09/2024 4:33 PM CDT Anemia, unspecified type COMPREHENSIVE METABOLIC PANEL Routine 4:33 PM CDT Elevated serum creatinine CBC WITH DIFFERENTIAL Routine 10/09/2024 4:33 PM CDT Anemia, unspecified type PROTIME-INR Routine 10/04/2024 4:25 PM CDT Cirrhosis of liver without ascites, unspecified hepatic cirrhosis type (CMS/HCC) CBC WITH DIFFERENTIAL Routine 10/04/2024 4:25 PM CDT Cirrhosis of liver without ascites, unspecified hepatic cirrhosis type (CMS/HCC) COMPREHENSIVE METABOLIC PANEL Routine 4:25 PM CDT Cirrhosis of liver without ascites, unspecified hepatic cirrhosis type (CMS/HCC) LIPID PANEL Routine 06/15/2024 2:28 PM CDT from Last 3 Months or Most Recently Relevant to Health Maintenance Results * COLONOSCOPY REPORT (12/26/2024 8:28 AM LIVESTOCK RANCH HAND) Narrative Procedure Note Gerardo Winter DO - 12/26/2024 8:[address] [facility] Endoscopy Patient Name: Saroj Drake Procedure Date: 12/26/2024 Date of : 1955 Attending MD: Gerardo Winter DO, Procedure: Colonoscopy Indications: Iron deficiency anemia Providers: Gerardo Winter DO Referring MD: Fred Ramsay MD Medicines: Monitored Anesthesia Care Complications: No immediate complications. Procedure: Informed consent was obtained for the procedure, including moderate sedation after risks were discussed. Based on the pre-procedure assessment, including review of the patient's medical history, medications, allergies, and review of systems, the patient was deemed to be an appropriate candidate for sedation. A timeout was performed. Continuous ECG monitoring, pulse oximetry, blood pressure monitoring, and direct observation were performed. The Colonoscope was introduced through the anus and advanced to the sigmoid colon. The Colonoscope was introduced through the and advanced to. The colonoscopy was extremely difficult due to abnormal anatomy, restricted mobility of the colon and significant looping. The patient tolerated the procedure well. The quality of the bowel preparation was adequate. The rectum was photographed. Findings: The perianal exam findings include Fibrosed-appearing hemorrhoids, mild stricturing noted. Significant looping, fixed point was found in the sigmoid colon and was non-traversed. Attempted to traverse with using water insufflcation, abdominal pressure, placing patient in both supine and prone positions, adding a clear cap, switching from adult to pediatric colonoscope. External and internal hemorrhoids were found during endoscopy. Modifier 22: Extremely difficult procedure requiring extra time and maneuvers as above. Impression: - Fibrosed-appearing hemorrhoids, mild stricturing noted found on perianal exam. - Signficant looping, fixed point in the sigmoid colon. Attempted to traverse with using water insufflcation, abdominal pressure, placing patient in both supine and prone positions, adding a clear cap, switching from adult to pediatric colonoscope. - External and internal hemorrhoids. - No specimens collected. Recommendation: - Patient has a contact number available for emergencies. The signs and symptoms of potential delayed complications were discussed with the patient. Return to normal activities tomorrow. Written discharge instructions were provided to the patient. - Obtain CT abd pelv w/o con with barium enema - Repeat colonoscopy with Dr Huerta Procedure Code(s): --- Professional --- 06987, Colonoscopy, flexible; diagnostic, including collection of specimen(s) by brushing or washing, when performed (separate procedure) CPT copyright 2020 [employer]. All rights reserved. The codes documented in this report are preliminary and upon full fashioned garment knitter review may be revised to meet current compliance requirements. Gerardo Winter DO 12/26/2024 8:28:34 AM This report has been signed electronically. Number of Addenda: [id number] [place] [address] Gerardo Winter DO GI PROCEDURE ORDERABLES Final Re sult * UPPER ENDOSCOPY REPORT (12/26/2024 7:55 AM LIVESTOCK RANCH HAND) Narrative Procedure Note Gerardo Winter DO - 12/26/2024 7:[address] [facility] Endoscopy Patient Name: Saroj Drake Procedure Date: 12/26/2024 Date of : 1955 Attending MD: Gerardo Winter DO, Procedure: Upper GI endoscopy Indications: Unexplained iron deficiency anemia, Follow-up of esophageal varices Providers: Gerardo Winter DO Referring MD: Fred Ramsay MD Medicines: Monitored Anesthesia Care Complications: No immediate complications. Procedure: Informed consent was obtained for the procedure, including moderate sedation after risks were discussed. Based on the pre-procedure assessment, including review of the patient's medical history, medications, allergies, and review of systems, the patient was deemed to be an appropriate candidate for sedation. A timeout was performed. Continuous ECG monitoring, pulse oximetry, blood pressure monitoring, and direct observation were performed. The Endoscope was introduced through the mouth, and advanced to the second part of duodenum. The upper GI endoscopy was accomplished without difficulty. The patient tolerated the procedure well. Findings: Three columns of grade III varices with no bleeding and no stigmata of recent bleeding were found at the gastroesophageal junction. No red kelton signs were present. The varices appeared larger than they were at prior exam. Three bands were successfully placed with incomplete eradication of varices. There was no bleeding during the maneuver. Patchy mildly erythematous mucosa was found in the prepyloric region of the stomach. Biopsies were taken with a cold forceps for histology. The cardia and gastric fundus were normal on retroflexion. The examined duodenum was normal. Biopsies for histology were taken with a cold forceps for evaluation of celiac disease. Impression: - Grade III esophageal varices with no bleeding and no stigmata of recent bleeding. Incompletely eradicated. Banded. - Erythematous mucosa in the prepyloric region of the stomach. Biopsied. - Normal examined duodenum. Biopsied. Recommendation: - Patient has a contact number available for emergencies. The signs and symptoms of potential delayed complications were discussed with the patient. Return to normal activities tomorrow. Written discharge instructions were provided to the patient. - Await pathology results. - Clear liquid diet today, full liquid diet tomorrow, soft diet for 2 days, then advance as tolerated - Use viscous lidocaine four times a day as needed for pain - Continue carvedilol twice a day Procedure Code(s): --- Professional --- 89393, Esophagogastroduodenoscopy, flexible, transoral; with band ligation of esophageal/gastric varices 77275, Esophagogastroduodenoscopy, flexible, transoral; with biopsy, single or multiple CPT copyright 2020 [employer]. All rights reserved. The codes documented in this report are preliminary and upon full fashioned garment knitter review may be revised to meet current compliance requirements. Gerardo Winter DO 12/26/2024 7:55:26 AM This report has been signed electronically. Number of Addenda: [id number], [place] [address] Gerardo Winter DO GI PROCEDURE ORDERABLES Final Re sult * PATHOLOGY (12/26/2024 7:44 AM [facility]) CASE REPORT Surgical Pathology R eport Case: [id number] Authorizing Provider: Gerardo Winter DO Collected: 12/26/2024 07:44 AM Ordering Location: [facility] Received: 12/26/2024 11:15 AM Endoscopy Services Pathologist: Jocelin Coker DO Specimens: A) - Duodenum, cold bxs B) - Stomach, cold bxs 11:00 AM [facility] [place] DIAGNOSIS Duodenum, biopsy - Duodenum with no pathologic change Stomach, biopsy - Antrum with chronic gastritis - Oxyntic mucosa with proton pump inhibitor type change - No Helicobacter identified 11:00 AM [facility] [place] 1100 [facility] GROSS DESCRIPTION A. Received in formalin labeled with patient's name and duodenum are multiple ding-pink fragments of tissue measuring 0.9 x 0.3 x 0.2 cm in aggregate. The specimen is entirely submitted as A1. B. Received in formalin labeled with patient's name and stomach are 3 ding-pink fragments of tissue measuring 0.6 x 0.3 x 0.2 cm in aggregate. The specimen is entirely submitted as B1. 11:00 AM [facility] [place] OPERATIVE PROCEDURE 1: ESOPHAGOGASTRODUODENOSCOP Y 2: COLONOSCOPY 11:00 AM [facility] [place] CLINICAL INFORMATION Iron deficiency anemia, unspecified iron deficiency anemia type [D50.9] Esophageal varices without bleeding, unspecified esophageal varices type (CMS/HCC) [I85.00] D50.9-Iron deficiency anemia, unspecified iron deficiency anemia type I85.00-Esophageal varices without bleeding, unspecified esophageal varices type (CMS/HCC) I85.10-Secondary esophageal varices without bleeding (CMS/HCC) 11:00 AM [facility] [place] COMMENT Unless gross only is specified in the diagnosis, the microscopic examination substantiates the above cited diagnosis The Deep Domain voice-activated dictation system may have been used in the creation of this report. Inherent to this system is the possibility of errors in syntax, grammar, punctuation, or other areas that could impact interpretation. If there are interpretative questions about the report, please contact the performing pathologist. Immunohistochemical stains were performed, if any, and interpreted at [facility] ([facility]) Laboratory with appropriately staining controls. This test was developed and it's performance characteristics determined by [facility] Lab. It has not been cleared or approved by the US Food and Drug Administration. The FDA does not require this test to go through premarket FDA review. This test is used for clinical purposes, and should not be regarded as investigational or for research. This lab is certified under CLIA to perform high complexity testing. Estrogen and progesterone receptor staining has not been validated in our lab on decalcified tissue; decalcification may decrease immunoreactivity for these and other antigens. Based on ASCO/CAP guidelines, hormone receptor staining greater than or equal to 1% is considered positive. The results indicate the percentage of cells staining positive for the analyte. ER clone SP1 and DC clone [id number] were used with a [facility] multimer/ DAB detection system. Tissue is adequate for ER/DC analysis (6-72 hours formalin fixation) unless otherwise stated. 11:00 AM [facility]OR[facility]ORY SERVICES [facility] Tissue ENTIRE DUODENUM / Unknown Collection / Unknown 12/26/2024 7:44 AM [facility] 12/26/2024 11:15 AM [facility] Tissue specimen (specimen) ENTIRE STOMACH / Unknown 12/26/2024 7:45 AM [facility] 12/26/2024 11:15 AM [facility] us Gerardo Winter DO PATHOLOGY/CYTOLOGY ORDERABLES Fi nal Result [facility] CLIA# [id number] [place] [address] * PACER ANALYSIS REMOTE, UP TO 90 DAYS (12/12/2024 2:00 AM CDT) 12/12/2024 2:00 AM CDT Narrative INTERFACE SYSTEM - 12/14/2024 1:40 PM CDT Mr. Drake had a remote follow up of his [employer] dual chamber pacemaker. The device is functioning normally. Battery status is stable with an estimated longevity of 6.0-6.2 years. The lead impedances are stable. Atrial sensing thresholds are stable. No ventricular arrhythmias have been detected. No atrial arrhythmias have been detected. AP-8.1% PREMIX OPERATOR CONCENTRATE-100%. Remote follow up in 3 months. Procedure Note Provider, Historical - 12/14/2024 Mr. Drake had a remote follow up of his [employer] dual chamberpacemaker. The device is functioning normally. Battery status is stablewith an estimated longevity of 6.0-6.2 years. The lead impedances arestable. Atrial sensing thresholds are stable. No ventricular arrhythmias have been detected. No atrialarrhythmias have been detected. AP-8.1% PREMIX OPERATOR CONCENTRATE-100%. Remote follow up in 3months. Jf Loco MD CARDIAC SERVICES ORDER ERICA Final Result Performing Organization Address City/[facility] Co de Phone Number INTERFACE SYSTEM Refer to clinic/hospital department * EXTRA TUBE (11/27/2024 8:50 AM CDT) Pathologist [facility] COMMENT CHEMISTRY [facility] Comment: An extra specimen was received with no test requested. The specimen will be maintained in storage in case additional testing is needed. Please call the client service department for further assistance. SPECIMEN TYPE Metal-free Vial [facility] Comment: REQ#'S [id number], [id number] ADDED TO THIS ORDER FASTING:YES FASTING: YES Test Performed at: [facility] [address] [place] [address] Ramon Odonnell MD 11/27/2024 8:50 AM CDT 11/29/2024 4:45 AM CDT Adelita Camacho MD CHEMISTRY ORDERABLES Final Result Performing Organization Address City/[facility]/ZIP Co de Phone Number [facility] [phone] [facility] [address] [place] [address] * DNA (DS) AB, CRITHIDIA IFA W/REFLEX TITER (11/27/2024 8:50 AM CDT) Pathologist [facility] DNA AB (DS) CRITHIDIA,IFA NEGATIVE NEGATIVE [facility], Comment: REQ#'S [id number], [id number] ADDED TO THIS ORDER FASTING:YES FASTING: YES Test Performed at: [facility], [address] [place] [address] Katelin Camp MD,PhD,SHAKIR Blood 11/27/2024 8:50 AM CDT 11/29/2024 4:45 AM CDT Adelita Camacho MD CHEMISTRY ORDERABLES Final Result Performing Organization Address [facility] Co de Phone Number [facility] [phone] [facility], [address] [place] [address] * IMMUNOFIXATION (11/27/2024 8:50 AM CDT) Pathologist [facility] IMMUNOFIXATION INTERP [facility] Comment: IgG kappa monoclonal band present. REQ#'S [id number], [id number] ADDED TO THIS ORDER FASTING:YES FASTING: YES Test Performed at: [facility] [address] [place] [address] Ramon Odonnell MD 11/27/2024 8:50 AM CDT 11/29/2024 4:45 AM CDT Adelita Camacho MD CHEMISTRY ORDERABLES Final Result Performing Organization Address [facility]/ZIP Co de Phone Number [facility] [phone] [facility] [address] [place] [address] * (ABNORMAL) KAPPA/LAMBDA, FREE LIGHT CHAINS (11/27/2024 8:50 AM CDT) KAPPA FREE LIGHT CHAIN 61.6(H) 3.3 - 19.4 mg/L [facility] [place] LAMBDA FREE LIGHT CHAIN 35.7(H) 5.7 - 26.3 mg/L [facility] [place] KAPPA/LAMBDA LIGHT CHAIN RATIO 1.73(H) 0.26 - 1.65 [facility] [place] Comment: Free kappa/lambda ratio in serum of normal individuals is 0.26-1.65. Excess production of free kappa or lambda chains can alter this ratio. Monoclonal free light chains are found in serum of patients with multiple myeloma, Waldenstrom's macroglobulinemia, mu-heavy chain disease, primary amyloidosis, light chain deposition disease, monoclonal gammopathy of undetermined significance, and lymphoproliferative disorders. Measurement of free light chain concentration in serum is useful for diagnosis, prognosis, monitoring disease activity and following response to therapy of these disorders. REQ#'S [id number], [id number] ADDED TO THIS ORDER FASTING:YES FASTING: YES Test Performed at: [facility] [address] Ramon Odonnell MD Blood 11/27/2024 8:50 AM CDT 11/29/2024 4:45 AM CDT Adelita Camacho MD CHEMISTRY ORDERABLES Final Result [facility] [phone] [facility] [address] * ALPHA FETOPROTEIN TUMOR MARKER (11/27/2024 8:50 AM CDT) ALPHA FETOPROTEIN TUMOR MARKER 2.6 <6.1 ng/mL [facility] linda Valdez Comment: This test was performed using the Brittny [place] chemiluminescent method. Values obtained from different assay methods cannot be used interchangeably. AFP levels, regardless of value, should not be interpreted as absolute evidence of the presence or absence of disease. FASTING:YES FASTING: YES Test Performed at: [facility] [address] [place] [address] Ranjit Abreu Blood 11/27/2024 8:50 AM CDT 11/29/2024 5:06 AM CDT us Gerardo Winter CHEMISTRY ORDERABLES Final Resul t [facility] [phone] [facility] [address] [place] [address] * (ABNORMAL) CBC WITH DIFFERENTIAL (11/27/2024 8:50 AM CDT) Only the most recent of3 resultswithin the time period is included. WBC 3.9 3.8 - 10.8 Thousand/u L [facility] RBC 3.13(L) 4.20 - 5.80 Million/uL [facility] HEMOGLOBIN 9.3(L) 13.2 - 17.1 g/dL [facility] HEMATOCRIT 30.3(L) 38.5 - 50.0 % [facility] MCV 96.8 80.0 - 100.0 fL [facility] MCH 29.7 27.0 - 33.0 pg [facility] MCHC 30.7(L) 32.0 - 36.0 g/dL [facility] Comment: For adults, a slight decrease in the calculated MCHC value (in the range of 30 to 32 g/dL) is most likely not clinically significant; however, it should be interpreted with caution in correlation with other red cell parameters and the patient's clinical condition. RDW 13.3 11.0 - 15.0 % [facility] PLATELETS 164 140 - 400 Thousand/u L [facility] MPV 12.5 7.5 - 12.5 fL [facility] NEUTROPHIL ABSOLUTE 2,644 1,500 - 7,800 cells/uL [facility] LYMPHOCYTE ABSOLUTE 718(L) 850 - 3,900 cells/uL [facility] MONOCYTE ABSOLUTE 335 200 - 950 cells/uL [facility] EOSINOPHIL ABSOLUTE 164 15 - 500 cells/uL [facility] BASOPHILS ABSOLUTE 39 0 - 200 cells/uL [facility] NEUTROPHIL 67.8 % [facility] LYMPHOCYTES 18.4 % [facility] MONOCYTE 8.6 % [facility] EOSINOPHILS 4.2 % [facility] BASOPHILS 1.0 % [facility] Comment: FASTING:YES FASTING: YES Test Performed at: [facility] [address] [place] [address] Ramon Odonnell MD Blood 11/27/2024 8:50 AM CDT 11/29/2024 5:06 AM CDT Gerardo Winter DO HEMATOLOGY ORDERABLES Final Resu lt [facility] [phone] [facility] [place] [address] * VITAMIN D 25 HYDROXY (11/27/2024 8:50 AM CDT) VITAMIN D, 25 OH, TOTAL 70 30 - 100 ng/mL [facility] Comment: Vitamin D Status 25-OH Vitamin D: Deficiency: <20 ng/mL Insufficiency: 20 - 29 ng/mL Optimal: > or = 30 ng/mL For 25-OH Vitamin D testing on patients on D2-supplementation and patients for whom quantitation of D2 and D3 fractions is required, the [facility](TM) 25-OH VIT D, (D2,D3), LC/MS/MS is recommended: order code 91909 (patients >2yrs). See Note 1 Note 1 For additional information, please refer to http://education.BitTorrent/faq/LEV985 (This link is being provided for informational/ educational purposes only.) REQ#'S [id number], [id number] ADDED TO THIS ORDER FASTING:YES FASTING: YES Test Performed at: [facility] [place] [address] [facility] [place] [address] Ramon Odonnell MD Blood 11/27/2024 8:50 AM CDT 11/29/2024 4:45 AM CDT Adelita Camacho MD CHEMISTRY ORDERABLES Final Result [facility] [phone] [facility] [address] [address] * (ABNORMAL) PROTEIN ELECTROPHORESIS W/REFLEX,SERUM (11/27/2024 8:50 AM CDT) TOTAL PROTEIN 7.2 6.1 - 8.1 g/dL [facility] [place] ALBUMIN SPE 4.0 3.8 - 4.8 g/dL [facility] [place] ALPHA 1 GLOBULIN SPE 0.3 0.2 - 0.3 g/dL [facility] [place] ALPHA 2 GLOBULIN SPE 0.6 0.5 - 0.9 g/dL [facility] [place] Beta 1 Globulin 0.6 0.4 - 0.6 g/dL [facility] [place] Beta 2 Globulin 0.4 0.2 - 0.5 g/dL [facility] [place] GAMMA GLOBULIN 1.3 0.8 - 1.7 g/dL [facility] [place] ABNORMAL PROTEIN BAND SPE 0.1(H) NONE DETECTED g/dL [facility] [place] SPE INTERP [facility] [place] Comment: Poorly defined band (possible M-spike) migrating in the gamma region. Consider serum immunofixation to rule out a monoclonal protein if clinically indicated. REQ#'S [id number], [id number] ADDED TO THIS ORDER FASTING:YES FASTING: YES Test Performed at: [facility] [address] [facility] [place] [address] Ramon Odonnell MD Blood 11/27/2024 8:50 AM CDT 11/29/2024 4:45 AM CDT Adelita Camacho MD CHEMISTRY ORDERABLES Final Result [facility] [phone] [facility] [address] [address] * PTH INTACT (11/27/2024 8:50 AM CDT) PTH INTACT 32 16 - 77 pg/mL [facility] Comment: Interpretive Guide Intact PTH Calcium ------- Normal Parathyroid Normal Normal Hypoparathyroidism Low or Low Normal Low Hyperparathyroidism Primary Normal or High High Secondary High Normal or Low Tertiary High High Non-Parathyroid Hypercalcemia Low or Low Normal High REQ#'S [id number], [id number] ADDED TO THIS ORDER FASTING:YES FASTING: YES Test Performed at: [facility] [address] [place] [address] Ramon Odonnell MD Blood 11/27/2024 8:50 AM CDT 11/29/2024 4:45 AM CDT Adelita Camacho MD CHEMISTRY ORDERABLES Final Result [facility] [phone] [facility] [address] * HEMOGLOBIN A1C (11/27/2024 8:50 AM CDT) [facility] HEMOGLOBIN A1C 5.6 <5.7 % [facility] Comment: For the purpose of screening for the presence of diabetes: <5.7% Consistent with the absence of diabetes 5.7-6.4% Consistent with increased risk for diabetes (prediabetes) > or =6.5% Consistent with diabetes This assay result is consistent with a decreased risk of diabetes. Currently, no consensus exists regarding use of hemoglobin A1c for diagnosis of diabetes in children. According to [place] Diabetes Association (ADA) guidelines, hemoglobin A1c <7.0% represents optimal control in non- diabetic patients. Different metrics may apply to specific patient populations. Standards of Medical Care in Diabetes(ADA). ESTIMATED AVERAGE GLUCOSE (MG/DL) 114 mg/dL [facility] ESTIMATED AVERAGE GLUCOSE (MMOL/L) 6.3 mmol/L [facility] Comment: REQ#'S [id number], [id number] ADDED TO THIS ORDER FASTING:YES FASTING: YES Test Performed at: [facility] [address] [facility] [place] [address] Ramon Odonnell MD 11/27/2024 8:50 AM CDT 11/29/2024 4:45 AM CDT Adelita Camacho MD CHEMISTRY ORDERABLES Final Result [facility] [phone] [facility] [address] * (ABNORMAL) RENAL FUNCTION PANEL (11/27/2024 8:50 AM CDT) GLUCOSE 125(H) 65 - 99 mg/dL [facility] Comment: Fasting reference interval For someone without known diabetes, a glucose value between 100 and 125 mg/dL is consistent with prediabetes and should be confirmed with a follow-up test. BUN 43(H) 7 - 25 mg/dL [facility] CREATININE 2.43(H) 0.70 - 1.28 mg/dL [facility] GFR 28(L) > OR = 60 mL/min/1.7 3m2 [facility] BUN/CREAT RATIO 18 6 - 22 (calc) [facility] SODIUM 143 135 - 146 mmol/L [facility] POTASSIUM 4.4 3.5 - 5.3 mmol/L [facility] CHLORIDE 108 98 - 110 mmol/L [facility] CO2 28 20 - 32 mmol/L [facility] CALCIUM 9.5 8.6 - 10.3 mg/dL [facility] PHOSPHORUS 3.6 2.1 - 4.3 mg/dL [facility] ALBUMIN 4.1 3.6 - 5.1 g/dL [facility] Comment: REQ#'S [id number], [id number] ADDED TO THIS ORDER FASTING:YES FASTING: YES Test Performed at: [facility] [address] [facility] [place] [address] Ramon Odonnell MD 11/27/2024 8:50 AM CDT 11/29/2024 4:45 AM CDT Adelita Camacho MD CHEMISTRY ORDERABLES Final Result [facility] [phone] [facility] [address] [address] * (ABNORMAL) COMPREHENSIVE METABOLIC PANEL (11/27/2024 8:50 AM CDT) Only the most recent of3 resultswithin the time period is included. GLUCOSE 124(H) 65 - 99 mg/dL [facility] Comment: Fasting reference interval For someone without known diabetes, a glucose value between 100 and 125 mg/dL is consistent with prediabetes and should be confirmed with a follow-up test. BUN 43(H) 7 - 25 mg/dL [facility] CREATININE 2.49(H) 0.70 - 1.28 mg/dL [facility] GFR 27(L) > OR = 60 mL/min/1.7 3m2 [facility] BUN/CREAT RATIO 17 6 - 22 (calc) [facility] SODIUM 143 135 - 146 mmol/L [facility] POTASSIUM 4.4 3.5 - 5.3 mmol/L [facility] CHLORIDE 109 98 - 110 mmol/L [facility] CO2 26 20 - 32 mmol/L [facility] CALCIUM 9.4 8.6 - 10.3 mg/dL [facility] TOTAL PROTEIN 7.1 6.1 - 8.1 g/dL [facility] ALBUMIN 4.2 3.6 - 5.1 g/dL [facility] GLOBULIN 2.9 1.9 - 3.7 g/dL (calc) [facility] ALBUMIN/GLOBULIN RATIO 1.4 1.0 - 2.5 (calc) [facility] BILIRUBIN TOTAL 0.5 0.2 - 1.2 mg/dL [facility] ALKALINE PHOSPHATASE 43 35 - 144 U/L [facility] AST 36(H) 10 - 35 U/L [facility] ALT 20 9 - 46 U/L [facility] Comment: FASTING:YES FASTING: YES Test Performed at: [facility] [address] [facility] [place] [address] Ramon Odonnell MD Blood 11/27/2024 8:50 AM CDT 11/29/2024 5:06 AM CDT us Gerardo Winter DO CHEMISTRY ORDERABLES Final Resul t Performing Organization Address City/[facility]/ZIP Co de Phone Number [facility] [phone] [facility] [address] [place] [address] * (ABNORMAL) MICROALBUMIN/CREATININE RATIO, RANDOM UR (11/27/2024 8:36 AM CDT) CREATININE, URINE 128 20 - 320 mg/dL [facility] ALBUMIN, URINE 7.6 See Note: mg/dL [facility] Comment: Reference Range: Reference Range Not established ALB/CREAT RATIO, URINE 59(H) <30 mg/g creat [facility] Comment: The ADA defines abnormalities in albumin excretion as follows: Albuminuria Category Result (mg/g creatinine) Normal to Mildly increased <30 Moderately increased 30-299 Severely increased > OR = 300 The ADA recommends that at least two of three specimens collected within a 3-6 month period be abnormal before considering a patient to be within a diagnostic category. Test Performed at: [facility] [address] [place] [address] Ramon Odonnell MD Urine URINE SPECIMEN OBTAINED BY CLEAN CATCH PROCEDURE / Unknown 11/27/2024 8:36 AM CDT 11/29/2024 10:44 PM CDT us Adelita Camacho MD URINE ORDERABLES Final Resu lt Performing Organization Address City/[facility]/ZIP Co de Phone Number [facility] [phone] [address] * (ABNORMAL) PROTEIN/CREATININE RATIO, URINE (11/27/2024 8:36 AM CDT) CREATININE, URINE 128 20 - 320 mg/dL [facility] PROTEIN/CREATI NINE RATIO, URINE 219(H) 25 - 148 mg/g creat [facility] PROTEIN/CREATI NINE RATIO, URINE 0.219(H) 0.025 - 0.148 mg/mg creat [facility] PROTEIN TOTAL, URINE 28(H) 5 - 25 mg/dL [facility] Comment: FASTING:YES FASTING: YES Test Performed at: [address] [address] Ramon Odonnell MD Urine URINE SPECIMEN OBTAINED BY CLEAN CATCH PROCEDURE / Unknown 11/27/2024 8:36 AM CDT 11/29/2024 10:44 PM CDT us Adelita Camacho MD URINE ORDERABLES Final Resu lt [facility] [phone] [address] * (ABNORMAL) URINALYSIS WITH REFLEX MICROSCOPIC (11/27/2024 8:36 AM CDT) Pathologist [facility] COLOR UA YELLOW YELLOW [facility] CLARITY UA CLEAR CLEAR [facility] SPECIFIC GRAVITY UA 1.017 1.001 - 1.035 [facility] PH UA 5.5 5.0 - 8.0 [facility] GLUCOSE UA NEGATIVE NEGATIVE [facility] BILIRUBIN UA NEGATIVE NEGATIVE [facility] KETONES UA NEGATIVE NEGATIVE [facility] BLOOD UA NEGATIVE NEGATIVE [facility] PROTEIN UA TRACE(A) NEGATIVE [facility] NITRITE UA NEGATIVE NEGATIVE [facility] LEUKOCYTE ESTERASE UA NEGATIVE NEGATIVE [facility] WBC UA NONE SEEN < OR = 5 /HPF [facility] RBC UA NONE SEEN < OR = 2 /HPF [facility] EPITHELIAL CELLS, URINE NONE SEEN < OR = 5 /HPF [facility] BACTERIA UA NONE SEEN NONE SEEN /HPF [facility] HYALINE CAST NONE SEEN NONE SEEN /LPF [facility] URINE NOTE [facility] Comment: This urine was analyzed for the presence of WBC, RBC, bacteria, casts, and other formed elements. Only those elements seen were reported. FASTING:YES FASTING: YES Test Performed at: [facility] [address] Ramon Odonnell MD Urine URINE SPECIMEN OBTAINED BY CLEAN CATCH PROCEDURE / Unknown 11/27/2024 8:36 AM CDT 11/29/2024 10:44 PM CDT Adelita Camacho MD URINE ORDERABLES Final Resu lt [facility] [phone] [facility] [address] * URINE CULTURE (11/27/2024 8:36 AM CDT) URINE CULTURE SEE NOTE [facility] Comment: CULTURE, URINE, ROUTINE Micro Number: [id number] Test Status: Final Specimen Source: Urine Specimen Quality: Adequate Result: No Growth We received a preserved urine culture transport tube with either no order indicated or a source which is inappropriate for the test requested. A urine culture was performed. If this is not what you intended to order, please contact your local client administrator immediately so that we can adjust our billing appropriately. You may also inquire about alternative or additional testing. FASTING:YES FASTING: YES Test Performed at: [facility] [address] [place] [address] Ramon Odonnell MD 11/27/2024 8:36 AM CDT 11/29/2024 10:44 PM CDT Adelita Camacho MD MICROBIOLOGY - GENERAL ORDRamón BIRCH Final Result [facility] [phone] [facility] [address] [address] [address] * US RENAL AND BLADDER (11/21/2024 9:14 AM CDT) Anatomical Region Laterality Modality Abdomen Ultrasound 11/21/2024 9:16 AM CDT Impressions 11/21/2024 10:17 AM CDT IMPRESSION: 1. Prominence of the left renal pelvis and ureter. 2. No evidence of nephrolithiasis, or solid renal mass. DICTATION LOCATION: [address] Narrative 11/21/2024 10:17 AM CDT EXAMINATION: US RENAL AND BLADDER DATE: 11/21/2024 9:14 AM HISTORY: See Diagnosis; CKD stage 3b, GFR 30-44 ml/min (CMS/HCC) COMPARISON: CT 12/09/2023 FINDINGS: Renal parenchymal echogenicity is normal. There is no evidence of nephrolithiasis or solid renal mass. Prominence of the left renal pelvis and ureter. Renal blood flow is present. The urinary bladder is nondistended. Right kidney: 11.1 cm Left kidney: 11.7 cm Procedure Note [employer], - 11/21/2024 EXAMINATION: US RENAL AND BLADDER DATE: 11/21/2024 9:14 AM HISTORY: See Diagnosis; CKD stage 3b, GFR 30-44 ml/min (CMS/HCC) COMPARISON: CT 12/09/2023 FINDINGS: Renal parenchymal echogenicity is normal. There is no evidence of nephrolithiasis or solid renal mass. Prominence of the left renal pelvis and ureter. Renal blood flow is present. The urinary bladder is nondistended. Right kidney: 11.1 cm Left kidney: 11.7 cm IMPRESSION: 1. Prominence of the left renal pelvis and ureter. 2. No evidence of nephrolithiasis, or solid renal mass. DICTATION LOCATION: Location [address] [place] [address] Adelita Camacho MD US ORDERABLES Final Resul t * (ABNORMAL) IRON, TIBC, AND PERCENT SATURATION (10/09/2024 4:33 PM CDT) IRON 56 50 - 180 mcg/dL [facility] TIBC 537(H) 250 - 425 mcg/dL (calc) [facility] IRON % SATURATION 10(L) 20 - 48 % (calc) [facility] Comment: FASTING:NO FASTING: NO Test Performed at: [facility] [address] [place] [address] [facility] Blood 10/09/2024 4:33 PM CDT 10/10/2024 2:43 AM CDT Gerardo Winter DO CHEMISTRY ORDERABLES Final Resul t Performing Organization Address [facility] Co de Phone Number [facility] [phone] [employer] [address] * (ABNORMAL) FERRITIN (10/09/2024 4:33 PM CDT) FERRITIN 23(L) 24 - 380 ng/mL [employer] [facility] Comment: FASTING:NO FASTING: NO Test Performed at: [facility] [facility] [address] TamieOanh Odonnell MD Blood 10/09/2024 4:33 PM CDT 10/10/2024 2:43 AM CDT Gerardo Winter DO CHEMISTRY ORDERABLES Final Resul t Performing Organization Address City/[facility]/ZIP Co de Phone Number [facility] [phone] [employer] [address] * (ABNORMAL) PROTIME-INR (10/04/2024 4:25 PM CDT) INR 1.2(H) [facility] Comment: Reference Range 0.9-1.1 Moderate-intensity Warfarin Therapy 2.0-3.0 Higher-intensity Warfarin Therapy 3.0-4.0 PROTIME 12.3(H) 9.0 - 11.5 sec [facility] Comment: For additional information, please refer to http://education.FigCard/faq/TDA793 (This link is being provided for informational/ educational purposes only.) FASTING:NO FASTING: NO Test Performed at: [place] [address] [place] [address] TamieOdilon Stark Vo Blood 10/04/2024 4:25 PM CDT 10/05/2024 12:24 AM CDT Gerardo Winter DO HEMATOLOGY ORDERABLES Final Resu lt Performing Organization Address City/[facility]/ZIP Code Phone Number [facility] [phone] [place] [address] [place] [address] * LIPID PANEL (06/15/2024 2:28 PM CDT) Blood Abstract Provider CHEMISTRY ORDERABLES Edited Re sult - Final [facility] [id number] [place], [place] [address]# [id number] [address] [place] [phone] from Last 3 Months or Most Recently Relevant to Health Maintenance Additional Health Concerns Active Problems Noted Date Diagnosed Date Autogenerated Problem 12/28/[address] [place] [address] [employer] O [facility] [place] [id number] RX [employer] Medicare Part D [place] [id number] [employer] [facility] Advance Directives For more information, please contact: [phone] * Full Code (Latest Code Status on File) Date Activated Date Inactivated Comments 12/09/2023 11:17 PM 12/10/2023 6:39 PM Care Teams Project Management Professor Relationship Specialty Start Date End Date Fred Ramsay MD [address] [facility] [place] [address] PCP - General Family Practice 12/10/23
[2025-01-01 15:48] LABS: Hematocrit 30.6 % (42.0-52.0); Hemoglobin 9.4 g/dL (14.0-18.0); Immature Granulocyte Percent A 0.2 % (0-0.5); Lymphocytes Absolute Auto 1.31 K/mm3 (0.9-3.2); Mean Corpuscular HGB Conc 30.7 g/dl (32-36); Mean Corpuscular Hemoglobin 28.6 pg (26-34); Mean Corpuscular Volume 93.0 fl (80-100); Nucleated Red Blood Cells Absolute Auto 0.000 K/mm3 (0.0-0.012); Nucleated Red Blood Cells Perc 0.0 % (0.0-0.2); Platelet Count Result 191 k/mm3 (150-375); Red Blood Count 3.29 M/mm3 (4.6-6.20); White Blood Count 5.6 K/mm3 (4.5-10.0)
[2025-01-01 16:26] LABS: Alanine Aminotransferase 27 U/L (6-50); Albumin Level 4.4 g/dL (3.5-5.1); Alkaline Phosphatase 58 U/L (38-126); Anion Gap 6 mmol/L (4-12); Aspartate Amino Transferase 46 U/L (17-59); Bilirubin,Total 0.5 mg/dL (0.2-1.3); Blood Urea Nitrogen 42 mg/dL (9-20); Calcium 10.0 mg/dL (8.4-10.2); Carbon Dioxide 30 mmol/L (22-30); Chloride 105 mmol/L (98-107); Estimated Glomerular Filt Rate 30; Glucose 87 mg/dL (65-110); Potassium 4.7 mmol/L (3.4-5.0); Sodium 141 mmol/L (137-145); Total Protein 8.2 g/dL (6.3-8.2)
[2025-01-01 16:34] LABS: Immunoglobulin A 337 mg/dL (70-400); Immunoglobulin G 1476 mg/dL (700-1600); Immunoglobulin M 119 mg/dL (40-230)
[2025-01-02 15:09] LABS: Albumin 3.4 g/dL (2.9-4.4); Alpha-1-Globulin 0.3 g/dL (0.0-0.4); Alpha-2-Globulin 0.8 g/dL (0.4-1.0); Free Lambda Lt Chains, Serum 37.4 mg/L (5.7-26.3); Gamma Globulin 1.5 g/dL (0.4-1.8); Kappa/Lambda Ratio, Serum 1.64 (0.26-1.65)
== END 2025-01-01 15:21 | disposition home or self-care (01) ==
PROVIDERS: Visit Provider Internal Medicine Hematology & Oncology
DX: D47.2 Monoclonal gammopathy (principal)
CPT/HCPCS: 36415; 80053; 82784; 83521; 84155; 84165; 85025

== ENCOUNTER 2025-01-05 12:36 | Outpatient (CLI) | payer MEDICARE, SELFPAY ==
--- NOTE | ~2025-01-05 | XR_ITS ---
EXAM/PROCEDURE: XR bone survey comp/metastic HISTORY: [facility]US COMPARISON: None available. TECHNIQUE: Skeletal bone survey FINDINGS: No suspicious lesion seen. Probably small old bone infarctions in the mid to distal diaphysis of both right and left femurs. No geographic areas of demineralization or ostial lysis. No osteoblastic lesion seen. IMPRESSION: No discrete or geographic lesion suspicious for metastatic disease. 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 Reviewed, dictated and finalized at location A. F MACHINE OPERATOR IMPRESSION: No discrete or geographic lesion suspicious for metastatic disease. Probable susie ne infarctions in the mid and distal femurs bilaterally.
== END 2025-01-05 12:37 | disposition home or self-care (01) ==
PROVIDERS: Visit Provider Internal Medicine Hematology & Oncology
DX: D47.2 Monoclonal gammopathy (principal)
CPT/HCPCS: 77075